=== PATIENT | female | born 2000 | race African-American/Black ===

== ENCOUNTER → 2019-01-23 11:51 | Outpatient (CLI) | payer OTHER, MEDICAID, SELFPAY ==
[2019-01-23 13:28] LABS: Urine N gonorrhoeae NOT DETECTED
[2019-01-23 14:12] LABS: Urine Chlamydia NOT DETECTED
== END ==
PROVIDERS: Family Provider Family Medicine; PCP Family Medicine; Visit Provider Family Medicine
DX: Z00.00 Encounter for general adult medical examination without abnormal findings (principal)
CPT/HCPCS: 87491; 87591

== ENCOUNTER → 2019-03-19 09:53 | Outpatient (CLI) | payer OTHER, MEDICAID, SELFPAY ==
[2019-03-19 10:26] LABS: Pregnancy Test Serum,Qual Positive (Negative)
== END ==
PROVIDERS: PCP Family Medicine; Visit Provider Family Medicine
DX: N92.6 Irregular menstruation, unspecified (principal)
CPT/HCPCS: 36415; 84703

== ENCOUNTER → 2019-03-24 09:48 | Outpatient (CLI) | payer OTHER, MEDICAID, SELFPAY ==
--- NOTE | 2019-03-24 09:50 | DI.US.S_ITS ---
PROCEDURE: US OB <= 14 WEEKS FETUS INDICATIONS: INITIAL US: DATING AND VIABILITY OUTSIDE/PRIOR DATING DATA: Last menstrual period (LMP): Not available. LMP-based estimated date of delivery (ASHOK): Not available. First dating scan (date and location): The study, 03/24/19. Estimated date of delivery (ASHOK) from first dating scan: 11/09/19. TECHNIQUE: Real-time scanning was performed of the fetuses and maternal pelvic organs, with image documentation. Endovaginal scanning: Performed for better visualization of the fetuses and maternal adnexal structures. COMPARISON: None. FINDINGS: General: An intrauterine is present. Embryo: Single living intrauterine gestation with heart rate 149 beats per minute with crown-rump length 1.1 cm correlates with a gestational age estimate of 7 weeks 1 day, plus or -5 days. Measurement variability in dating: +/- 4 weeks by LMP, +/- 7 days by mean sac diameter (use before 6 weeks gestation if crown-rump length unable to be measured), +/- 5 days by crown-rump length (up to 8 weeks 6 days gestation), +/- 7 days by crown-rump length (up to 13 weeks 6 days gestation). Maternal organs: Ovaries are normal considering gestational status. Limited images through the kidneys demonstrate no hydronephrosis. IMPRESSION: Single living intrauterine gestation with estimated delivery date of 11/09/19. Heart rate is 149 beats per minute. Current estimated gestational age is 7 weeks 1 day, plus or -5 days. Followup anatomic survey at approximately 21 weeks gestation is recommended. Dictated by: Herminio German M.D. on 03/24/2019 at 11:43 Approved by: Herminio German M.D. on 03/24/2019 at 11:46
== END ==
PROVIDERS: PCP Family Medicine; Visit Provider Family Medicine
DX: Z34.81 Encounter for supervision of other normal pregnancy, first trimester (principal)
CPT/HCPCS: 76801

== ENCOUNTER → 2019-03-31 14:54 | Outpatient (CLI) | payer OTHER, MEDICAID, SELFPAY ==
[2019-03-31 15:42] LABS: Add Manual Diff / Slide Review NO; Basophils Absolute Auto 0 /uL (0-100); Basophils Percent Auto 0.4 % (0-2); Eosinophils Absolute Auto 100 /uL (0-450); Eosinophils Percent Auto 2.3 % (2-4); Hematocrit 39.8 % (36-46); Hemoglobin 13.2 g/dL (12.0-16.0); Lymphocytes Absolute Auto 1500 /uL (1100-4500); Lymphocytes Percent Auto 25.3 % (25-40); Mean Corpuscular HGB Conc 33.2 % (30-36); Mean Corpuscular Hemoglobin 29.2 PG (26-34); Mean Corpuscular Volume 88.1 fL (80-100); Monocytes Absolute Auto 400 /uL (0-900); Monocytes Percent Auto 6.8 % (3-14); Neutrophils Absolute Auto 3900 /uL (1500-7000); Neutrophils Percent Auto 65.2 % (50-75); Platelet Count 272 X10^3/uL (150-400); Red Blood Cell Count 4.52 X10^6/uL (4.0-5.2); Red Cell Distribution Width 14.5 % (11.6-14.8)
[2019-03-31 15:50] LABS: Appearance Urine UA CLEAR; Bilirubin Urine UA NEGATIVE (NEGATIVE); Color Urine UA YELLOW; Glucose Urine UA NEGATIVE (Negative); Ketones Urine UA NEGATIVE (NEGATIVE); Leukocyte Esterase Urine UA NEGATIVE (NEGATIVE); Nitrite Urine UA NEGATIVE (Negative); Occult Blood Urine UA NEGATIVE (Negative); Protein Urine UA NEGATIVE (Negative); Specific Gravity Urine UA 1.015 (1.000-1.035); Urobilinogen Urine UA 0.2 E.U./dL (0.2); pH Urine UA 7.5 (4.5-8.0)
[2019-03-31 17:12] LABS: Hepatitis B Surface Antigen NEGATIVE s/c (NEGATIVE); Rubella Antibody IgG 30.5 IU/mL (>15)
[2019-03-31 17:31] LABS: HIV 1 & 2 Ab/Ag 4th Gen Combo NEGATIVE (NEGATIVE); Hep C Virus Ab w/Reflex Quant NEGATIVE s/c (NEGATIVE)
[2019-04-02 12:32] LABS: RPR Screen Nonreactive (Nonreactive)
== END ==
PROVIDERS: PCP Family Medicine; Visit Provider Family Medicine
DX: Z34.91 Encounter for supervision of normal pregnancy, unspecified, first trimester (principal); Z3A.08 8 weeks gestation of pregnancy
CPT/HCPCS: 36415; 80055; 81003; 86787; 86803; 86850; 86900; 86901; 87086; 87389

== ENCOUNTER → 2019-06-22 13:15 | Outpatient (CLI) | payer OTHER, MEDICAID, SELFPAY ==
--- NOTE | 2019-06-22 13:17 | DI.US.S_ITS ---
PROCEDURE: US OB >= 14 WEEKS FETUS INDICATIONS: ANATOMY SCAN OUTSIDE/PRIOR DATING DATA: Last menstrual period (LMP): Not available. LMP-based estimated date of delivery (ASHOK): Not available. First dating scan (date and location): The study, 03/24/19. Estimated date of delivery (ASHOK) from first dating scan: 11/09/19. TECHNIQUE: Real-time scanning was performed of the fetus, with image documentation and biometric measurements. Endovaginal scanning: No COMPARISON: [facility], OB <= 14 WEEKS FETUS, 03/24/2019, 10:13. FINDINGS: General: A single living intrauterine gestation is present. Presentation: Vertex. Placenta: Placental position is anterior, without previa. Amniotic fluid index: 17.1 cm, normal range is 5-24 cm. heart rate: 141 beats per minute. Maternal cervical canal: 3.1 cm long. Normal lower limit is 2.5 cm. biometrics: Biparietal diameter: 21 weeks 1 day Head circumference: 20 weeks 3 days Abdominal circumference: 20 weeks 6 days Femur length: 20 weeks 5 days Estimated gestational age from initial scan: 20 weeks Composite gestational age from present scan: 20 weeks Estimated weight and percentile: 375 g; 85th percentile. Measurement variability for biometric dating: +/- 7 days from 14 weeks to 15 weeks 6 days gestation, +/- 10 days from 16 weeks to 21 weeks 6 days gestation, +/- 2 weeks from 22 weeks to 27 weeks 6 days gestation, +/- 3 weeks for 28 weeks gestation or later. weight reference: 4500 g or EFW >90/95% is considered macrosomia or large for gestational age. EFW <10% is small for gestational age. EFW 5% or less is considered intra-uterine growth restriction. Anatomic survey: Neuro: Ventricles are non-dilated at less than 10 mm. Cisterna magna is normal at 3-11 mm. Cerebellum is normal in size and morphology. Nuchal skin fold: Normal at less than 6 mm between 14-21 weeks gestational age. Face: Nose and lips, facial profile are normal. Spine: Not well-visualized. Heart: 4-chambered heart is present, with normal ventricular outflow tracts. Diaphragm: Diaphragm is intact. Stomach: Left-sided stomach is present. Kidneys: No hydronephrosis. Normal is less than 5 mm in 2nd trimester, less than 7 mm in 3rd trimester. Cord: 3-vessel cord has orthotopic insertion. Bladder: Normal in size. Extremities: All 4 extremities identified. IMPRESSION: 1. Single living IUP redemonstrated and interval growth is normal. 2. The spine not well seen; otherwise normal anatomic survey. Followup recommended. Dictated by: Emmanuel TREVINO Interpreted: Karina Gama MD on 06/22/2019 at 14:56 Approved by: Karina Gama M.D. on 06/22/2019 at 17:50
== END ==
PROVIDERS: PCP Family Medicine; Visit Provider Family Medicine
DX: Z34.92 Encounter for supervision of normal pregnancy, unspecified, second trimester (principal); Z3A.20 20 weeks gestation of pregnancy
CPT/HCPCS: 76811

== ENCOUNTER → 2019-07-20 13:15 | Outpatient (CLI) | payer OTHER, MEDICAID, SELFPAY ==
--- NOTE | 2019-07-20 13:15 | DI.US.S_ITS ---
PROCEDURE: US OB FOLLOW UP INDICATIONS: FOLLOW UP SPINE OUTSIDE/PRIOR DATING DATA: First dating scan (date and location): 03/24/19. Estimated date of delivery (ASHOK) from first dating scan: 11/09/19. TECHNIQUE: Real-time scanning was performed of the fetus, with image documentation. Endovaginal scanning: Not needed for this study COMPARISON: None. FINDINGS: A single living intrauterine gestation is present. Presentation: Vertex. Placenta: Placental position is anterior, without previa. Amniotic fluid index: 16.9 cm, normal range is 5-24 cm. heart rate: 147 beats per minute. Maternal cervical canal: 3.4 cm long. Normal lower limit is 2.5 cm. Estimated gestational age from initial scan: 24 weeks 0 days. Completion of anatomic survey with normal visualization of the fine, 4 chamber view of heart, outflow tracts, stomach abdomen and kidneys. The urinary bladder also appeared normal. IMPRESSION: Completion of anatomic survey, no anomalies. Dictated by: Herminio German M.D. on 07/20/2019 at 15:16 Approved by: Herminio German M.D. on 07/20/2019 at 15:18
== END ==
PROVIDERS: PCP Family Medicine; Visit Provider Family Medicine
DX: Z36.2 Encounter for other antenatal screening follow-up (principal); Z3A.24 24 weeks gestation of pregnancy
CPT/HCPCS: 76816

== ENCOUNTER → 2019-09-11 11:57 | Outpatient (CLI) | payer OTHER, MEDICAID, SELFPAY ==
[2019-09-11 14:39] LABS: GTT (PREG) 1 Hour PP 50gm Dose 117 mg/dL (76-139)
== END ==
PROVIDERS: PCP Family Medicine; Visit Provider Family Medicine
DX: Z34.93 Encounter for supervision of normal pregnancy, unspecified, third trimester (principal)
CPT/HCPCS: 36415; 82950

== ENCOUNTER → 2019-10-19 11:46 | Outpatient (CLI) | payer OTHER, MEDICAID, SELFPAY ==
[2019-10-20 09:01] LABS: Strep Grp B PCR NEG for Grp B Strep
== END ==
PROVIDERS: PCP Family Medicine; Visit Provider Family Medicine
DX: Z34.83 Encounter for supervision of other normal pregnancy, third trimester (principal); Z3A.37 37 weeks gestation of pregnancy
CPT/HCPCS: 87653

== ENCOUNTER 2019-11-02 08:48 | Outpatient (CLI) | payer OTHER, MEDICAID, SELFPAY ==
--- NOTE | 2019-11-02 09:18 | PM.OBTRLD ---
Visit Information Visit Information Date of evaluation: 11/02/19 Primary OB Provider: Promise Dudley Reason for Evaluation: Yes non-stress test non-stress test reason: decreased movement PFSH Social History Smoking Status: Never smoker alcohol intake: never substance use type: does not use Evaluation Evaluation Baseline heart rate: 130 Variability: Moderate (11-25) monitor accelerations: Present monitor decelerations: Absent Category of Tracing: I Diagnosis, Plan/Disposition Final Diagnosis (1) Decreased movement: Current Visit: Yes Status: Acute Plan/Disposition Plan: Reactive NST. Stable for d/c to clinic for scheduled OB visit. OB Disposition: home
== END 2019-11-02 09:25 | disposition home or self-care (01) ==
LOC: OB 11:52
PROVIDERS: PCP Family Medicine; Referring Provider Family Medicine; Visit Provider Family Medicine
DX: O36.8130 Decreased fetal movements, third trimester, not applicable or unspecified (principal); Z3A.39 39 weeks gestation of pregnancy
CPT/HCPCS: 59025; G0378; G0379

== ENCOUNTER 2019-11-15 06:36 | Inpatient (IN) | payer OTHER, MEDICAID, SELFPAY ==
[2019-11-15 07:20] VITALS: BP 130/77
[2019-11-15] MEDS: LACTATED RINGERS 1,000 ML 100 ML IV ×2 (07:50→09:00)
--- NOTE | 2019-11-15 07:55 | PM.OBHP.1 ---
OB HPI Date/Time Date of admission: 11/15/19 Date Patient Seen: 11/15/19 Time Patient Seen: 07:30 History of Present Condition Chief complaint: observation of labor : 2 Para: 1 Estimated Date of Delivery: 11/09/19 Estimated Gestational Age (weeks): 40w6d Narrative: Raffi Cota is a 19 year old at 40w6d who presented in active labor. Pt reports contractions starting around 12am, increasing in frequency and intensity since then. No LOF or vaginal bleeding. She has been feeling baby move regularly. History of Present care: good care, initiated at week # (8) and pounds weight gain (30) Dating criteria: based on 1st trimester US only Ultrasounds: normal 1st trimester US and normal mid trimester US Obstetrical complications: none Medical complications: none Preadmission Labs Blood type: A (+) positive -: Antibody screen: negative, GBS status: negative, HBsAG: negative, HIV: negative and RPR/VDLR: negative -: Rubella: immune and Varicella: immune HCT: 39.8 HCAB: negative PAP: Normal 1 hr GTT: 117 Prior (ies) History: 10/2017 - at 40wks, 7lb8oz, female Evaluation Evaluation Baseline heart rate: 130 Variability: Moderate (11-25) monitor accelerations: Present monitor decelerations: Absent Contraction Frequency (minutes): 2 Uterine Contraction Intensity: Strong/Firm Category of Tracing: I Cervical dilation (cm): 7 Cervical effacement (%): 100 station: 0 PFSH Social History Smoking Status: Never smoker alcohol intake: never substance use type: does not use Meds Home Medications and Allergies Home Medications Medication Instructions Recorded Confirmed Type vitamin B complex 1 tab PO DAILY 01/01/18 01/23/19 History cyclobenzaprine 10 mg tablet 10 mg PO TID PRN #30 tab 11/21/18 01/23/19 Rx metronidazole 250 mg tablet 250 mg PO Q8H #21 tab 04/03/19 Rx ondansetron 4 mg disintegrating 4 mg PO Q8H #30 tab 04/23/19 Rx tablet fluconazole 150 mg tablet 150 mg PO ONCE #1 tab 09/14/19 09/14/19 Rx Allergies Allergy/AdvReac Type Severity Reaction Status Date / Time No Known Allergies Allergy Uncoded 01/23/19 11:24 Exam Vital Signs (past 8 hours): - 11/15/19 07:20 Blood Pressure 130/77 Narrative Exam Narrative: Gen: NAD, sitting at bedside, appears well CV: RRR, no murmurs Resp: clear to auscultation bilaterally Abd: soft, nondistended, gravid Ext: no edema Assessment and Plan Assessment and Plan Assessment and Plan narrative: 19yo at 40w6d who presented in active labor. No complications with . Rh positive, GBS negative. - Expectant management, anticipate - GBS negative, no prophylaxis - FHT reassuring - Epidural for pain control now
[2019-11-15 09:54] LABS: Add Manual Diff / Slide Review NO; Basophils Absolute Auto 0 /uL (0-100); Basophils Percent Auto 0.3 % (0-2); Eosinophils Absolute Auto 200 /uL (0-450); Hematocrit 42.2 % (36-46); Hemoglobin 13.8 g/dL (12.0-16.0); Lymphocytes Absolute Auto 2000 /uL (1100-4500); Lymphocytes Percent Auto 18.9 % (25-40); Mean Corpuscular HGB Conc 32.6 % (30-36); Mean Corpuscular Volume 85.9 fL (80-100); Monocytes Absolute Auto 900 /uL (0-900); Monocytes Percent Auto 8.7 % (3-14); Neutrophils Absolute Auto 7500 /uL (1500-7000); Neutrophils Percent Auto 70.1 % (50-75); Platelet Count 241 X10^3/uL (150-400); Red Blood Cell Count 4.91 X10^6/uL (4.0-5.2); Red Cell Distribution Width 16.9 % (11.6-14.8); White Blood Cell Count 10.7 X10^3/uL (4.5-11.0)
[2019-11-15] MEDS: OXYTOCIN 10 UNIT/ML VIAL 20 UNIT (10:39)
--- NOTE | 2019-11-15 10:55 | PM.OBPRVD ---
Labor & Delivery Delivery date: 11/15/19 Intrapartal events: None Cervical ripening method: none Induction method: none Delivery monitor: external FHT Route of delivery: Episiotomy description: None L&D Laceration Description: None Estimated blood loss (mL): 250 Anesthesia type: Epidural Complications: None Narrative: PROCEDURE: at 40w6d presented in active labor and was admitted to Labor and Delivery. The patient progressed through the 1st stage over 6 hours. AROM was performed with thick meconium present. Pain was controlled with an epidural. Recurrent variable decels improved with position changes and oxygen. The patient progressed through the 2nd stage over 2 hours and delivered a viable male with APGARs 9/9 at 10:34 via without complications. The baby cried immediately after delivery. The perineum and vagina were inspected with no lacerations. PREPROCEDURE DIAGNOSIS: Intrauterine at 40w6d GBS negative RH positive POSTPROCEDURE DIAGNOSIS: Intrauterine at 40w6d, delivered Same as preprocedure ROM APPEARANCE: Thick meconium BABY A DELIVERY TIME: 10:34 BABY A WEIGHT: 9lb7.7oz BABY A NUCHAL CORD: None PLACENTA DELIVERY TIME: 10:38 PLACENTA APPEARANCE: Intact [place] Baby 1: gender: Male Presentation: vertex position: Right Occiput Anterior Placenta delivery description: Spontaneous cord vessel description: 3 Vessels score (1 min): 9 score (5 min): 9 Plan for aftercare: Normal care
[2019-11-15] MEDS: IBUPROFEN 600 MG TABLET PO ×2 (17:09→23:07)
[2019-11-15] MEDS: ACETAMINOPHEN 325 MG TABLET 650 MG PO (19:37)
[2019-11-16] MEDS: ACETAMINOPHEN 325 MG TABLET 650 MG PO ×2 (01:38→08:08)
[2019-11-16] MEDS: IBUPROFEN 600 MG TABLET PO (06:52)
[2019-11-16] MEDS: PRENATAL VIT,CALC/IRON/FOLIC 1 TABLET 1 TAB PO (08:08)
--- NOTE | 2019-11-16 09:03 | PM.OBDS.1 ---
Discharge Providers Provider Date of admission: 11/15/19 06:36 Discharge Date: 11/16/19 Primary care physician: Promise Dudley MD Consults: 11/16/19 10:54 Consult to [employer] Routine Comment: Discharge provider: Promise Dudley MD Summary Hospital Course Date Patient Seen: 11/16/19 Time Patient Seen: 08:00 Procedures: Spontaneous vaginal delivery Hospital Course: The pt was admitted in active labor. She had an epidural for pain controlled. AROM was performed with thick meconium present. She progressed to complete, and had an of a viable baby boy on 11/15/19. The baby cried spontaneously immediately after delivery. There were no lacerations. , there were no complications. The pt was voiding, ambulating, and passing flatus without difficulty. Her lochia was decreasing appropriately. She was with good latch. Her pain was well controlled. She will f/u in clinic in 6 weeks. Peripartum Data Infant Delivery Method: Natural Vaginal Laceration description: None Episiotomy description: None Procedures: Spontaneous vaginal delivery complications: none 1: Gender: Male Disposition of : home Discharge Diagnosis (1) Spontaneous vaginal delivery: Status: Acute Status at Discharge Cognitive/behavioral status at discharge: oriented Functional status at discharge: independent ambulation Overall status at discharge: patient is progressing back to baseline Time Spent with Patient Time attestation: Total time spent providing and/or coordinating discharge services: Time spent: Greater than 30 minutes Objective Labs Result Diagrams: 11/15/19 07:30 Labs: Laboratory Results - last 24 hr 11/15/19 11/15/19 07:30 07:30 WBC 10.7 RBC 4.91 Hgb 13.8 Hct 42.2 MCV 85.9 MCH 28.0 MCHC 32.6 RDW 16.9 H Plt Count 241 Neut % (Auto) 70.1 Lymph % (Auto) 18.9 L Emmons % (Auto) 8.7 Eos % (Auto) 2.0 Baso % (Auto) 0.3 Neut # (Auto) 7500 H Lymph # (Auto) 2000 Emmons # (Auto) 900 Eos # (Auto) 200 Baso # (Auto) 0 Blood Type A Positive Antibody Screen Negative Exam Narrative Exam Narrative: Gen: NAD, sitting comfortably in bed, appears well CV: RRR, no murmurs Resp: clear to auscultation bilaterally Abd: soft, nondistended, nontender, normoactive bowel sounds, fundus firm and below the umbilicus Ext: trace edema Discharge Plan Discharge Plan Patient Disposition: Home Discharge orders & Medications Prescriptions: New acetaminophen 325 mg Tablet 650 mg PO Q6HR PRN (Reason: Pain, Mild (1-3)) Qty: 30 RF: 0 Dermoplast (with menthol) 20-0.5 % Aerosol 1 spray topical Q1HR PRN (Reason: perineal pain) Qty: 15 RF: 0 ibuprofen 600 mg Tablet 600 mg PO Q6HR PRN (Reason: Pain, Mild (1-3)) Qty: 30 RF: 0 [id number] Cream 1 applic topical PRN PRN (Reason: Tenderness) Qty: 15 RF: 0 Prenatabs Rx 29 mg iron- 1 mg Tablet 1 tab PO DAILY Qty: 30 RF: 0 Continued ondansetron 4 mg tablet,disintegrating 4 mg PO Q8H Qty: 30 RF: 2 vitamin B complex [B Complex-Vitamin B12] tablet 1 tab PO DAILY RF: 0 cyclobenzaprine 10 mg tablet 10 mg PO TID PRN (Reason: muscle spasm) Qty: 30 RF: 0 Discontinued fluconazole 150 mg tablet 150 mg PO ONCE Qty: 1 RF: 0 metronidazole 250 mg tablet 250 mg PO Q8H Qty: 21 RF: 0 Follow up/Referrals: Promise Dudley MD [Primary Care Provider] - 6 Weeks (please follow up w/ Dr. Dudley on November 28 @ 11:30am) Diet/Activity/Treatments Diet: Regular Skin/Wound/Dressing Care Report to your healthcare provider any signs of infection, such as:: chills, fever, increased pain and unusual drainage Visit Report/Discharge Packet Instructions: DI for Labor and Delivery, Vaginal Stand Alone Forms: Discharge: Care Visit Report Forms: Patient Portal/API, Stroke Signs & Symptoms Discharge Data Primary Care Provider: Promise Dudley Discharges patient from system. Discharge Date/Time: 11/16/19 12:21
== END 2019-11-16 12:21 | disposition home or self-care (01) | DRG 560 ==
PROVIDERS: Admitting Provider Family Medicine; PCP Family Medicine; Referring Provider Family Medicine; Visit Provider Family Medicine
DX: O77.0 Labor and delivery complicated by meconium in amniotic fluid (principal); Z3A.40 40 weeks gestation of pregnancy; Z37.0 Single live birth
CPT/HCPCS: 01967; 59050; 59409; 85025; 86850; 86900; 86901; G0379; J2590

== ENCOUNTER → 2021-01-03 09:42 | Outpatient (CLI) | payer OTHER, MEDICAID, SELFPAY ==
[2021-01-03 10:59] LABS: Appearance Urine UA CLEAR; Bilirubin Urine UA NEGATIVE (NEGATIVE); Color Urine UA YELLOW; Glucose Urine UA NEGATIVE (Negative); Ketones Urine UA NEGATIVE (NEGATIVE); Leukocyte Esterase Urine UA NEGATIVE (NEGATIVE); Nitrite Urine UA NEGATIVE (Negative); Occult Blood Urine UA NEGATIVE (Negative); Protein Urine UA NEGATIVE (Negative); Specific Gravity Urine UA 1.015 (1.000-1.035); Urobilinogen Urine UA 0.2 E.U./dL (0.2)
[2021-01-03 11:28] LABS: Add Manual Diff / Slide Review NO; Basophils Absolute Auto 0 /uL (0-100); Basophils Percent Auto 0.4 % (0-2); Eosinophils Absolute Auto 200 /uL (0-450); Eosinophils Percent Auto 2.3 % (2-4); Hematocrit 39.7 % (36-46); Hemoglobin 12.8 g/dL (12.0-16.0); Lymphocytes Absolute Auto 2000 /uL (1100-4500); Lymphocytes Percent Auto 28.7 % (25-40); Mean Corpuscular HGB Conc 32.2 % (30-36); Mean Corpuscular Hemoglobin 28.6 PG (26-34); Monocytes Absolute Auto 500 /uL (0-900); Monocytes Percent Auto 6.7 % (3-14); Neutrophils Absolute Auto 4300 /uL (1500-7000); Neutrophils Percent Auto 61.9 % (50-75); Platelet Count 303 X10^3/uL (150-400); Red Blood Cell Count 4.46 X10^6/uL (4.0-5.2); White Blood Cell Count 6.9 X10^3/uL (4.5-11.0)
[2021-01-03 12:22] LABS: Hepatitis B Surface Antigen NEGATIVE s/c (NEGATIVE)
[2021-01-03 12:39] LABS: HIV 1 & 2 Ab/Ag 4th Gen Combo NEGATIVE (NEGATIVE); Hep C Virus Ab w/Reflex Quant NEGATIVE s/c (NEGATIVE)
[2021-01-04 08:16] LABS: RPR Screen Non Reactive (Non Reactive)
[2021-01-04 08:36] LABS: Varicella IgG Antibody 744 index (Immune >165)
== END ==
PROVIDERS: PCP Family Medicine; Referring Provider Family Medicine; Visit Provider Family Medicine
DX: Z34.81 Encounter for supervision of other normal pregnancy, first trimester (principal)
CPT/HCPCS: 36415; 80055; 81003; 86787; 86803; 86850; 86900; 86901; 87086; 87389

== ENCOUNTER → 2021-03-01 11:56 | Outpatient (CLI) | payer OTHER, MEDICAID, SELFPAY ==
[2021-03-07 20:49] LABS: AFP, Serum 49.6 ng/mL (.); Estriol, Free 1.58 ng/mL (.); Inhibin A, Dimeric 133.92 pg/mL (.); Maternal Ethnicity Black (.); Maternal Weight 237 lbs (.); Number of Fetuses No (.); OSBR Risk 1 IN 3604 (.); Results Report (.); Test Results *Screen Negative* (.); hCG, MoM 2.14 (.); hCG, Serum 60857 mIU/mL (.)
== END ==
PROVIDERS: PCP Family Medicine; Referring Provider Family Medicine; Visit Provider Family Medicine
DX: Z34.90 Encounter for supervision of normal pregnancy, unspecified, unspecified trimester (principal); Z3A.17 17 weeks gestation of pregnancy
CPT/HCPCS: 36415; 82105; 82677; 84702; 86336

== ENCOUNTER → 2021-03-28 09:06 | Outpatient (CLI) | payer OTHER, MEDICAID, SELFPAY ==
--- NOTE | 2021-03-28 09:07 | DI.US.S_ITS ---
PROCEDURE: US OB >= 14 WEEKS FETUS INDICATIONS: ANATOMY OUTSIDE/PRIOR DATING DATA: First dating scan (date and location): 03/28/2021 . Estimated date of delivery (ASHOK) from first dating scan: 08/03/2021 . TECHNIQUE: Real-time scanning was performed of the fetus, with image documentation and biometric measurements. Endovaginal scanning: No COMPARISON: [facility], OB >= 14 WEEKS FETUS, 06/22/2019, 14:31. [facility], OB FOLLOW UP, 07/20/2019, 13:24. FINDINGS: General: A single living intrauterine gestation is present. Presentation: Breech. Placenta: Placental position is right lateral , without previa. Amniotic fluid index: 13 cm, normal range is 5-24 cm. heart rate: 149 beats per minute. Maternal cervical canal: 3.2 cm long. Normal lower limit is 2.5 cm. biometrics: Biparietal diameter: 20 weeks 6 days Head circumference: 21 weeks 2 days Abdominal circumference: 21 weeks 5 days Femur length: 22 weeks 5 days Estimated gestational age from initial scan: not applicable. Composite gestational age from present scan: 21 weeks 5 days Estimated weight and percentile: N/a Measurement variability for biometric dating: +/- 7 days from 14 weeks to 15 weeks 6 days gestation, +/- 10 days from 16 weeks to 21 weeks 6 days gestation, +/- 2 weeks from 22 weeks to 27 weeks 6 days gestation, +/- 3 weeks for 28 weeks gestation or later. weight reference: 4500 g or EFW >90/95% is considered macrosomia or large for gestational age. EFW <10% is small for gestational age. EFW 5% or less is considered intra-uterine growth restriction. Anatomic survey: Neuro: Ventricles are non-dilated at less than 10 mm. Cisterna magna is normal at 3-11 mm. Cerebellum is normal in size and morphology. Nuchal skin fold: Normal at less than 6 mm between 14-21 weeks gestational age. Face: Nose and lips, facial profile are normal. Spine: No evidence for spina bifida. Heart: 4-chambered heart is present, with normal ventricular outflow tracts. Diaphragm: Diaphragm is intact. Stomach: Left-sided stomach is present. Kidneys: No hydronephrosis. Normal is less than 5 mm in 2nd trimester, less than 7 mm in 3rd trimester. Cord: 3-vessel cord has orthotopic insertion. Bladder: Normal in size. Extremities: All 4 extremities identified. IMPRESSION: 1. 21 week 5 day single living IUP corresponding to ultrasound ASHOK of 08/03/2021. 2. Normal anatomic survey. Dictated by: Emmanuel Lopez RR Interpreted: Gt Rider MD on 03/28/2021 at 10:07 Transcribed by: LYNN on 03/28/2021 at 10:09 Approved by: Gt Rider M.D. on 03/28/2021 at 10:40
== END ==
PROVIDERS: PCP Family Medicine; Referring Provider Family Medicine; Visit Provider Family Medicine
DX: Z34.92 Encounter for supervision of normal pregnancy, unspecified, second trimester (principal); Z3A.21 21 weeks gestation of pregnancy
CPT/HCPCS: 76811

== ENCOUNTER → 2021-04-25 10:18 | Outpatient (CLI) | payer OTHER, MEDICAID, SELFPAY ==
[2021-04-25 11:00] LABS: COVID19 -Nasal RAPID Negative (Negative)
== END ==
PROVIDERS: PCP Family Medicine; Visit Provider Family Medicine
DX: Z20.822 Contact with and (suspected) exposure to COVID-19 (principal)
CPT/HCPCS: 87635

== ENCOUNTER → 2021-05-23 11:47 | Outpatient (CLI) | payer OTHER, MEDICAID, SELFPAY ==
[2021-05-23 13:29] LABS: Add Manual Diff / Slide Review NO; Basophils Absolute Auto 0 /uL (0-100); Basophils Percent Auto 0.2 % (0-2); Eosinophils Absolute Auto 200 /uL (0-450); Hematocrit 33.6 % (36-46); Hemoglobin 10.5 g/dL (12.0-16.0); Lymphocytes Absolute Auto 1800 /uL (1100-4500); Lymphocytes Percent Auto 15.3 % (25-40); Mean Corpuscular HGB Conc 31.3 % (30-36); Mean Corpuscular Hemoglobin 26.1 PG (26-34); Mean Corpuscular Volume 83.4 fL (80-100); Monocytes Absolute Auto 700 /uL (0-900); Neutrophils Absolute Auto 8900 /uL (1500-7000); Neutrophils Percent Auto 76.5 % (50-75); Platelet Count 267 X10^3/uL (150-400); Red Blood Cell Count 4.03 X10^6/uL (4.0-5.2); Red Cell Distribution Width 15.8 % (11.6-14.8); White Blood Cell Count 11.6 X10^3/uL (4.5-11.0)
[2021-05-23 14:09] LABS: GTT (PREG) 1 Hour PP 50gm Dose 122 mg/dL (76-139)
== END ==
PROVIDERS: PCP Family Medicine; Referring Provider Family Medicine; Visit Provider Family Medicine
DX: Z34.90 Encounter for supervision of normal pregnancy, unspecified, unspecified trimester (principal)
CPT/HCPCS: 36415; 82950; 85025

== ENCOUNTER → 2021-07-11 12:30 | Outpatient (CLI) | payer OTHER, MEDICAID, SELFPAY ==
[2021-07-12 18:43] LABS: Strep Grp B PCR NEG for Grp B Strep
== END ==
PROVIDERS: PCP Family Medicine; Referring Provider Family Medicine; Visit Provider Family Medicine
DX: Z3A.36 36 weeks gestation of pregnancy (principal)
CPT/HCPCS: 87653

== ENCOUNTER 2021-08-03 03:21 | Inpatient (IN) | payer OTHER, MEDICAID, SELFPAY ==
[2021-08-03 05:23] LABS: COVID19 -Nasal RAPID Negative (Negative)
[2021-08-03 05:33] LABS: Add Manual Diff / Slide Review NO; Basophils Absolute Auto 100 /uL (0-100); Basophils Percent Auto 0.5 % (0-2); Eosinophils Absolute Auto 200 /uL (0-450); Eosinophils Percent Auto 1.7 % (2-4); Hematocrit 35.4 % (36-46); Hemoglobin 11.5 g/dL (12.0-16.0); Lymphocytes Absolute Auto 2300 /uL (1100-4500); Mean Corpuscular HGB Conc 32.5 % (30-36); Mean Corpuscular Hemoglobin 24.4 PG (26-34); Mean Corpuscular Volume 75.1 fL (80-100); Monocytes Absolute Auto 1000 /uL (0-900); Monocytes Percent Auto 9.3 % (3-14); Neutrophils Absolute Auto 7400 /uL (1500-7000); Neutrophils Percent Auto 67.5 % (50-75); Platelet Count 280 X10^3/uL (150-400); Red Blood Cell Count 4.72 X10^6/uL (4.0-5.2); Red Cell Distribution Width 18.4 % (11.6-14.8); White Blood Cell Count 10.9 X10^3/uL (4.5-11.0)
[2021-08-03] MEDS: LACTATED RINGERS 1,000 ML 100 ML IV ×2 (06:17→09:53)
[2021-08-03] MEDS: FENT 2MCG/ML BUPIV 0.125% EPI 200 MCG/100 ML PLAST..BAG 12 MCG EPIDURAL (07:05)
--- NOTE | 2021-08-03 07:16 | PM.AN.REGBLK ---
Regional Block Pre-procedure Procedure: Continuous Lumbar Epidural for L&D Attending OB provider: Saray Pinzon PMH/ROS narrative: , active labor, morbid obesity Hx: No personal or family history of anesthesia problems. PSH/Anesthesia history narrative: previous epidural without issue Exam narrative: MP3, RRR, CTAB ASA Class: III Labs: Hct 35.4 % (36-46) L 08/03/21 04:45 Plt Count 280 X10^3/uL (150-400) 08/03/21 04:45 Medications: Current Medications Generic Name Dose Route Start Last Admin Trade Name Freq PRN Reason Stop Dose Admin Carboprost Tromethamine 250 mcg 08/03/21 04:44 Carboprost 250 Mcg/Ml Ampul IM Q90M PRN Bleeding Fentanyl 100 mcg 08/03/21 06:02 Fentanyl 100 Mcg/2 Ml Inj IV Q1H PRN Pain, Severe (7-10) Lactated Ringer's 1,000 mls @ 100 mls/hr 08/03/21 04:45 08/03/21 06:17 Lactated Ringers IV 100 mls/hr CONT ADRIEN Administration Oxytocin/Lactated Ringer's 30 unit in 500 mls @ 200 mls/hr 08/03/21 04:44 Oxytocin Premix IV CONT PRN Bleeding Protocol Tranexamic Acid 1,000 mg/ 100 mls @ 200 mls/hr 08/03/21 04:44 Sodium Chloride IV NOW PRN Bleeding Methylergonovine Maleate 0.2 mg 08/03/21 04:44 Methylergonovine 0.2 Mg Tablet PO Q6HR PRN Heavy Bleeding Methylergonovine Maleate 0.2 mg 08/03/21 04:44 Methylergonovine 0.2 Mg/Ml Vial IM NOW PRN Bleeding Misoprostol 800 mcg 08/03/21 04:44 Misoprostol 200 Mcg Tablet AR NOW PRN Bleeding Misoprostol 1,000 mcg 08/03/21 04:44 Misoprostol 200 Mcg Tablet AR NOW PRN Bleeding Misoprostol 400 mcg 08/03/21 04:44 Misoprostol 200 Mcg Tablet SL NOW PRN Bleeding Oxytocin 10 unit 08/03/21 04:44 Oxytocin 10 Unit/Ml Vial IM NOW PRN Bleeding Allergies: Allergies Allergy/AdvReac Type Severity Reaction Status Date / Time No Known Drug Allergies Allergy Verified 04/12/21 13:58 Procedure Insertion date: 08/03/21 Insertion time: 07:00 Prep/Local: betadine x3 (chloroprep) and 1% lidocaine Interspace: L3-4 Patient position: sitting Needle: 18 gauge Hustead (with 27G pencil point needle-through needle for IT dose) Loss of resistance with: saline (with air bubble) MARIAELENA at (cm): 7 Catheter placed at SKIN (cm): 12 Catheter in SPACE (cm): 5 Insertion: Yes CSF, No Blood, No Paresthesia with insertion, No Paresthesia with injection and No Test dose reaction Initial Medications TEST DOSE time: 07:00 TEST DOSE: 1.5% lidocaine with epinephrine 1:200k (mL): 5 (3mL initial test dose, 2mL as part of first bolus) BOLUS DOSE time: 07:01 BOLUS DOSE (mL): 2 BOLUS DOSE med: other (10mcg fentanyl intrathecally, 40mcg fentanyl via epidural catheter) Infusion INFUSION: 0.0625% bupivacaine and with fentanyl 2 mcg/mL Initial rate (mL/hr): 12 (with bolus of 5mL Q15min lockout) Subsequent interventions: Very challenging epidural 2/2 patient writhing and twisting with contractions. Then fainted, help called, broke scrub to help to floor. Fentanyl 50mcg IV given to patient, repositioned, prepped and draped. Single pass L3-4, MARIAELENA 7. Remaining fentanyl in first bolus after 10mcg intrathecally. Of note, pharmacy had no 1.5% lido with epi for test dose, and note in cart said to reconstitute our own. Epi added to 2% lido. Post-procedure Anesthesia time START: 06:29 Anesthesia time END: 10:52 Post-procedure Anesthesia Assessment: No Anesthesia complications
--- NOTE | 2021-08-03 09:35 | P.HPOB_ITS ---
OB HPI Date/Time Date of admission: 08/03/21 Date Patient Seen: 08/03/21 Time Patient Seen: 08:30 History of Present Condition Chief complaint: MATERNITY ASHOK Calculator Estimated Delivery Date Method Current WG Current Estimate 08/07/21 Manual 39w 3d Final ASHOK - HAYDEE Other Estimates 08/14/21 LMP (Certain) 38w 3d 08/07/21 Ultrasound #1 39w 3d Estimated Gestational Age (weeks): 39w3d : 3 Para: 2 Narrative: Pt is a 21yo at 39w3d who presented with SROM. Pt reports having a gush of fluid at around 2am. She started isreal shortly after. She denies any vaginal bleeding. She is feeling her baby move regularly. Her has been uncomplicated. care: good care, initiated at week # (7) and pounds weight gain (30) Dating criteria OB: based on 1st trimester US only Ultrasounds: normal 1st trimester US and normal mid trimester US Obstetrical complications: none Medical complications OB: none Preadmission Labs Last OB Lab Results: Blood Type A Positive 08/03/21 04:45 08/03/21 Antibody Screen Negative 08/03/21 04:45 08/03/21 Hematocrit 35.4 % (36-46) L 08/03/21 04:45 08/03/21 Hemoglobin 11.5 g/dL (12.0-16.0) L 08/03/21 04:45 08/03/21 Hepatitis B Surface Antigen Negative s/c (NEGATIVE) 01/03/21 10:00 01/03/21 Hepatitis C Antibody Negative s/c (NEGATIVE) 01/03/21 10:00 01/03/21 Rubella Antibody 24.0 IU/mL (>15) 01/03/21 10:00 01/03/21 Varicella-Zoster IgG Antibody 744 index (Immune >165) 01/03/21 10:00 01/03/21 Glucose 1 Hour 122 mg/dL (76-139) 05/23/21 13:00 05/23/21 Group B Streptococcus (PCR) Neg for grp b strep 07/11/21 12:30 07/11/21 -: Chlamydia screen: negative, Gonorrhea screen: negative and Urine: negative Genetic Screens: Quad screen: Normal External Labs -: Urine: negative Prior (ies) Past Pregnancies Del. Date GA/Weeks Labor Lgth Wt Sex Route Outcome Anesthesia Place Delv Breastfeed Preg Comp Name 10/25/17 40.2 36 7 lb 5.9 oz Female vaginal live - full t erm epidural IH w/ Dr. Dudley 12 mos. meconium Saydailinda 11/15/19 40.6 10 9 lb 7.7 oz Male vaginal live - full term epidural IH Still BFing @ 14 mos. meconium Cage Delivery Date: 10/25/17 Last Updated by: Keena Salcedo R.N. IOL w/ Cervidil, Pitocin. Thick meconium, amnioinfusion, FSE/IUPC. 1st degree lac w/ repair. EBL 350 mL. Pt states the epidural was light, she could still walk, didn't help much. Delivery Date: 11/15/19 Last Updated by: Keena Salcedo R.N. Spontaneous labor. AROM, thick meconium. Intact perineum. Evaluation Evaluation Baseline heart rate: 120 Variability: Moderate (11-25) monitor accelerations: Present Monitor Decelerations: Absent Contraction Frequency (minutes): 4 Status: Category l Dilation (cm): 7 Effacement (%): 80 station: -2 [facility] Medical History Asthma Hyperpigmentation (~1997) Seasonal allergies Spontaneous vaginal delivery (~11/15/19) Spontaneous vaginal delivery (~10/25/17) Family History Mother Breast cancer Anemia Father CPAP (continuous positive airway pressure) dependence Sleep apnea Grandmother Diabetes mellitus Grandfather Blood disorder Grandmother Cataracts, bilateral Grandfather Diabetes mellitus Family/Other Hx of cholecystectomy Sister Anemia Sister Anemia Social History marital status: number of children: 2 household members: spouse and children lives independently: No caregiver/support person: Yes housing: house pets and animals: Yes (1 dog: safe with babies. ) education level: high school occupational status: unemployed current occupational exposures/hazards: No special allen needs: No seatbelt use: always working smoke detector in home: Yes fire extinguisher in home: Yes carbon monox detector in home: Yes firearms in home: Yes firearms unloaded and locked: Yes do you feel safe at home: Yes Smoking Status: Never smoker second hand exposure: No alcohol intake: never substance use type: does not use during the past year weight has: remained stable well-balanced diet: about half the time daily servings fruits/ve-4 caffeine: No Type(s) of exercise: walking and regular exercise frequency: 5-6 times per week duration: 30-45 minutes/day Meds Home Medications and Allergies Home Medications Medication Instructions Recorded Confirmed Type prenat.vits,jona,[id number] 1 tab PO DAILY 12/22/20 08/03/21 History Allergies Allergy/AdvReac Type Severity Reaction Status Date / Time No Known Drug Allergies Allergy Verified 04/12/21 13:58 OB Exam Narrative Exam Narrative: Gen: NAD, laying comfortably in bed, appears well CV: RRR, no murmurs Resp: clear to auscultation bilaterally Abd: soft, nontender, gravid : fetus vertex Ext: no edema Objective Labs Result Diagrams: 08/03/21 04:45 Labs: Laboratory Results - last 24 hr 08/03/21 08/03/21 08/03/21 04:30 04:45 04:45 WBC 10.9 RBC 4.72 Hgb 11.5 L Hct 35.4 L MCV 75.1 L MCH 24.4 L MCHC 32.5 RDW 18.4 H Plt Count 280 Neut % (Auto) 67.5 Lymph % (Auto) 21.0 L [place] % (Auto) 9.3 Eos % (Auto) 1.7 L Baso % (Auto) 0.5 Neut # (Auto) 7400 H Lymph # (Auto) 2300 [place] # (Auto) 1000 H Eos # (Auto) 200 Baso # (Auto) 100 SARS-CoV-2 (PCR) Negative Blood Type A Positive Antibody Screen Negative Assessment and Plan Assessment and Plan Assessment and Plan narrative: 21yo at 39w3d here in active labor with SROM at home with clear fluid. GBS negative, Rh positive. No complications with . - Expectant management, anticipate - FHT reassuring - GBS negative, no prophylaxis indicated - Epidural in place for pain control
--- NOTE | 2021-08-03 11:21 | P.PCNOB_ITS ---
Labor & Delivery Delivery date: 08/03/21 Intrapartal Events: None Cervical ripening method: none Induction method: none Delivery monitor: external FHT Route of delivery: Episiotomy description: None L&D Laceration Description: None Estimated blood loss (mL): 250 Anesthesia Type: Epidural Complications: None Narrative: PROCEDURE: at 39w3d presented with SROM in active labor and was admitted to Labor and Delivery. The patient progressed through the 1st stage over 8.5 hours. Pain was controlled with an epidural. The patient progressed through the 2nd stage over 13 minutes and delivered a viable female infant with APGARs 9/9 at 10:52am via without complications. The cord was clamped and cut after it stopped pulsating. The perineum and vagina were inspected with no lacerations. PREPROCEDURE DIAGNOSIS: Intrauterine at 39w3d GBS negative RH positive POSTPROCEDURE DIAGNOSIS: Intrauterine at 39w3d, delivered Same as preprocedure Tie Siding Baby 1: Infant gender: Female Presentation: vertex Position: Left Occiput Anterior Placenta delivery description: Spontaneous Cord Vessel Description: 3 Vessels score (1 min): 9 score (5 min): 9 weight: 8 lb 9.6 oz Plan for aftercare: Routine care
[2021-08-03] MEDS: DERMOPLAST SPRAY 20% 60 ML 1 SPRAY TOP (13:21)
[2021-08-03] MEDS: LANOLIN OINT 7 GM 1 APPLIC TOP (13:21)
[2021-08-03] MEDS: IBUPROFEN 600 MG TABLET PO ×2 (13:21→21:56)
[2021-08-03] MEDS: ACETAMINOPHEN 325 MG TABLET 650 MG PO ×2 (16:07→21:55)
[2021-08-04] MEDS: ACETAMINOPHEN 325 MG TABLET 650 MG PO ×2 (04:11→11:52)
[2021-08-04] MEDS: IBUPROFEN 600 MG TABLET PO ×2 (04:11→11:52)
--- NOTE | 2021-08-04 08:36 | P.DS_ITS ---
Discharge Providers Provider Date of admission: 08/03/21 03:21 Discharge Date: 08/04/21 Primary care physician: Promise Dudley MD Consults: 08/04/21 11:16 Consult to Energy Systems Engineer Routine Comment: Discharge provider: Promise Dudley MD Summary Hospital Course Date Patient Seen: 08/04/21 Time Patient Seen: 07:45 Diagnoses: 39w3d gestation GBS negative Rh positive Hospital Course: The patient presented in active labor with SROM at home. She received an epidural for pain control. She progressed to complete dilation had a spontan eous vaginal delivery of a viable baby girl on 08/03/21 without any complications. There were no lacerations. , the patient was doing well without any complications. At the time of discharge she was voiding, ambulating, passing flatus without difficulty. Her lochia was decreasing appro priately. She was breast-feeding with good latch. Her pain was adequately controlled. She will follow up in clinic in 6 weeks for check. She is undecided regarding contraception. Peripartum Data Infant Delivery Method: Natural Vaginal Laceration Description: None Episiotomy description: None Procedures: Spontaneous vaginal delivery complications: none [place] 1: Gender: Female Disposition of : home Discharge Diagnosis (1) Spontaneous vaginal delivery: Status: Inactive Status at Discharge Cognitive/behavioral status at discharge: oriented Functional status at discharge: independent ambulation Overall status at discharge: patient is back to baseline Time Spent with Patient Time attestation: Total time spent providing and/or coordinating discharge services: Objective Labs Result Diagrams: 08/03/21 04:45 Exam Narrative Exam Narrative: Gen: NAD, sitting comfortably in bed, appears well CV: RRR, no murmurs Resp: clear to auscultation bilaterally Abd: soft, appropriately tender, fundus firm and below the umbilicus, nondistended Ext: no edema Discharge Plan Discharge Plan Patient Disposition: Home Discharge orders & Medications Prescriptions: New acetaminophen 325 mg Tablet 650 mg PO Q6HR PRN (Reason: Pain, Mild (1-3)) Qty: 30 0RF docusate sodium 100 mg Capsule 100 mg PO DAILY Qty: 30 0RF ibuprofen 600 mg Tablet 600 mg PO Q6HR PRN (Reason: Pain, Mild (1-3)) Qty: 30 0RF Continued prenat.vits,jona,[id number] Tablet 1 tab PO DAILY 0RF Follow up/Referrals: Promise Dudley MD [Primary Care Provider] - 6 Weeks Diet/Activity/Treatments Diet: Diet as Tolerated and Regular Skin/Wound/Dressing Care Report to your healthcare provider any signs of infection, such as:: chills, fever, increased pain and unusual drainage Visit Report/Discharge Packet Instructions: DI for Labor and Delivery, Vaginal Visit Report Forms: Patient Portal/API, Stroke Signs & Symptoms Discharge Data Primary Care Provider: Promise Dudley
[2021-08-04] MEDS: PRENATAL VIT,CALC/IRON/FOLIC 1 TABLET 1 TAB PO (11:51)
[2021-08-04] MEDS: DOCUSATE 100 MG CAPSULE PO (11:52)
[2021-08-04 12:26] VITALS: BP 110/69; PULSE 79; RESP 18; TEMP 36.5
== END 2021-08-04 13:10 | disposition home or self-care (01) | DRG 560 ==
PROVIDERS: Admitting Provider Specialist; PCP Family Medicine; Referring Provider Specialist; Visit Provider Specialist
DX: O42.02 Full-term premature rupture of membranes, onset of labor within 24 hours of rupture (principal); Z3A.39 39 weeks gestation of pregnancy; Z37.0 Single live birth; O99.214 Obesity complicating childbirth; E66.01 Morbid (severe) obesity due to excess calories; Z20.822 Contact with and (suspected) exposure to COVID-19
CPT/HCPCS: 01967; 36415; 59050; 59409; 85025; 86850; 86900; 86901; 87635; C9803; G0379

== ENCOUNTER 2022-05-12 17:40 | Emergency (ER) | payer OTHER, MEDICAID, SELFPAY ==
[2022-05-12 19:35] VITALS: BP 130/73; PULSE 71; RESP 18; TEMP 36.4; O2SAT 100; BMI 37.2
[2022-05-12 20:17] LABS: Add Manual Diff / Slide Review NO; Alanine Aminotransferase 20 IU/L (<35); Albumin 4.4 g/dL (3.5-5.0); Albumin Globulin Ratio 1.4 (1.0-2.8); Alkaline Phosphatase 51 U/L (38-126); Aspartate Aminotransferase 21 IU/L (14-36); BUN Creatinine Ratio 18.7 (6-22); Basophils Absolute Auto 100 /uL (0-100); Bilirubin Total 0.2 mg/dL (0.2-1.3); Blood Urea Nitrogen 14 mg/dL (7-17); Calcium 9.4 mg/dL (8.4-10.2); Carbon Dioxide 26 mmol/L (22-32); Chloride 108 mmol/L (98-107); Eosinophils Absolute Auto 500 /uL (0-450); Eosinophils Percent Auto 5.4 % (2-4); Estimated Glomerular Filt Rate > 60 mL/min (>60); Globulin 3.2 g/dL (1.7-4.1); Glucose 79 mg/dL (70-100); HEMOLYSIS 17 (0-50); Hematocrit 35.9 % (36-46); Hemoglobin 11.6 g/dL (12.0-16.0); Lipase 75 U/L (23-300); Lymphocytes Absolute Auto 3200 /uL (1100-4500); Lymphocytes Percent Auto 35.1 % (25-40); Mean Corpuscular HGB Conc 32.2 % (30-36); Mean Corpuscular Hemoglobin 26.7 PG (26-34); Monocytes Absolute Auto 600 /uL (0-900); Monocytes Percent Auto 6.6 % (3-14); Neutrophils Absolute Auto 4700 /uL (1500-7000); Neutrophils Percent Auto 51.9 % (50-75); Platelet Count 361 X10^3/uL (150-400); Potassium 4.2 mmol/L (3.4-5.1); Red Blood Cell Count 4.33 X10^6/uL (4.0-5.2); Red Cell Distribution Width 16.6 % (11.6-14.8); Sodium 141 mmol/L (137-145); Total Protein 7.6 g/dL (6.3-8.2); White Blood Cell Count 9.1 X10^3/uL (4.5-11.0)
== END 2022-05-12 23:47 | disposition left against medical advice (07) ==
PROVIDERS: Emergency Provider Emergency Medicine; PCP Family Medicine
DX: R10.9 Unspecified abdominal pain (principal)
CPT/HCPCS: 80053; 81003; 81025; 83690; 85025; 99282

== ENCOUNTER → 2022-09-14 17:34 | Outpatient (CLI) | payer OTHER, MEDICAID, SELFPAY | PROVIDERS: PCP Family Medicine; Visit Provider Student in an Organized Health Care Education/Training Program | DX: N39.0 Urinary tract infection, site not specified (principal) | CPT/HCPCS: 81002; 87086 ==

== ENCOUNTER → 2023-08-24 07:42 | Outpatient (CLI) | payer OTHER, MEDICAID, SELFPAY | PROVIDERS: PCP Family Medicine; Visit Provider Registered Nurse | DX: R30.0 Dysuria (principal) | CPT/HCPCS: 81002; 87086 ==